=== PATIENT | female | born 1950 | race Caucasian/White ===

== ENCOUNTER → 2020-08-18 | Day surgery (SDC) | payer MEDICARE, OTHER ==
[~2020-08-18] MED LIST: ANASTROZOLE1 MG PO; BUSPIRONE HCL10 MG PO; CLONIDINE HCL0.1 MG PO; CYCLOBENZAPRINE10 MG PO; DAILY VALUE1 EACH PO; DOXYCYCLINE HYC50 M2 PO; HCTZ25 MG PO; METROGEL TOP; PRAVACHOL20 MG PO; SINGULAIR10 MG PO; SYNTHROID112 MCG PO; TRAZODONE 50MG50 MG PO; UROCIT-K10 MEQ PO; VITAMIN D350 MC3 PO
== END | disposition home or self-care (01) ==
LOC: FAS 06:58
DX: D12.3 Benign neoplasm of transverse colon (principal); D12.5 Benign neoplasm of sigmoid colon; D12.0 Benign neoplasm of cecum; K21.9 Gastro-esophageal reflux disease without esophagitis; K64.4 Residual hemorrhoidal skin tags; K58.9 Irritable bowel syndrome, unspecified; K57.30 Diverticulosis of large intestine without perforation or abscess without bleeding; I49.3 Ventricular premature depolarization; I45.4 Nonspecific intraventricular block; I10 Essential (primary) hypertension; E03.9 Hypothyroidism, unspecified; J45.909 Unspecified asthma, uncomplicated; Z80.0 Family history of malignant neoplasm of digestive organs; Z87.19 Personal history of other diseases of the digestive system; Z85.3 Personal history of malignant neoplasm of breast; Z86.16 Personal history of COVID-19; Z88.1 Allergy status to other antibiotic agents; Z88.8 Allergy status to other drugs, medicaments and biological substances; Z88.2 Allergy status to sulfonamides; Z79.899 Other long term (current) drug therapy; Z98.890 Other specified postprocedural states; Z90.49 Acquired absence of other specified parts of digestive tract; Z86.69 Personal history of other diseases of the nervous system and sense organs; Z20.822 Contact with and (suspected) exposure to COVID-19
CPT/HCPCS: 88305; J2250; J2405; J2704; J3490; J7120